=== PATIENT | female | born 1980 | race Caucasian/White ===

== ENCOUNTER 2017-09-23 23:38 | Emergency (ER) | payer OTHER ==
[2017-09-24 01:09] LABS: BEDSIDE GLUCOSE 74 MG/DL (70-105)
[2017-09-24] MEDS: NS 1,000 ML IV (01:10)
[2017-09-24 01:22] LABS: BASO # 0.1 10^3/uL (0.0-0.2); BASO % 1.1 % (0.0-1.0); EOS # 2.1 10^3/uL (0.0-0.50); EOS % 15.7 % (0.0-3.0); HEMATOCRIT 42.3 % (36.0-47.0); HEMOGLOBIN 14.4 g/dl (12.0-16.0); IMMATURE GRANULOCYTE # 0.1 10^3/uL (0-0); IMMATURE GRANULOCYTE % 0.6 % (0-0); LYMPH # 1.8 10^3/uL (1.5-4.5); LYMPH % 13.5 % (24.0-44.0); MEAN CORPUSCULAR HEMOGLOBIN 29.9 pg (27.0-33.0); MEAN CORPUSCULAR VOLUME 87.9 fl (80.0-96.0); MONO # 0.9 10^3/uL (0.0-0.8); MONO % 6.7 % (0.0-5.0); NEUTROPHILS # 8.2 10^3/uL (1.8-7.7); NEUTROPHILS % 62.4 % (36.0-66.0); PLATELET COUNT, AUTOMATED 372 10^3/uL (150-450); RED BLOOD COUNT 4.81 10^6/uL (4.00-5.40); WHITE BLOOD COUNT 13.1 10^3/uL (4.0-10.0)
[2017-09-24 01:36] LABS: ANION GAP 3 MEQ/L (8-16); BLOOD UREA NITROGEN 6 MG/DL (7-18); CALCIUM LEVEL 8.9 MG/DL (8.5-10.1); CARBON DIOXIDE LEVEL 31 MEQ/L (21-32); CHLORIDE LEVEL 103 MEQ/L (98-107); CPK CREATINE PHOSPHOKINASE 85 U/L (26-192); CREATININE FOR GFR 0.84 MG/DL (0.55-1.02); ETHYL ALCOHOL (ETHANOL) < 0.003 % (0.000-0.010); GLOMERULAR FILTRATION RATE > 60.0 (>60); GLUCOSE, FASTING 100 MG/DL (70-105); POTASSIUM SERUM 4.1 MEQ/L (3.5-5.1); SODIUM LEVEL 137 MEQ/L (136-145); TROPONIN I < 0.02 NG/ML (< 0.10)
[2017-09-24 01:42] LABS: MB/CK RELATIVE INDEX 1.17 (< OR =4)
[2017-09-24 02:38] LABS: KETONE, URINE AUTO RFX NEGATIVE (NEGATIVE); LEUKOCYTE ESTERASE UR AUTO RFX NEGATIVE (NEGATIVE); NITRITE, URINE AUTO RFX NEGATIVE (NEGATIVE); RBC, URINE AUTO RFX 0 /HPF (0-3); SPECIFIC GRAVITY UR AUTO RFX 1.002 (1.002-1.035); SQUAM EPITHELIAL CELL UR AURFX 1 /HPF (0-6); WBC, URINE AUTO RFX 0 /HPF (0-3)
[2017-09-24 02:56] LABS: AMPHETAMINES LEVEL URINE NEGATIVE (NEGATIVE); BARBITURATES URINE NEGATIVE (NEGATIVE); BENZODIAZEPINES URINE NEGATIVE (NEGATIVE); CANNABINOIDS URINE POSITIVE (NEGATIVE); COCAINE METABOLITE URINE NEGATIVE (NEGATIVE); METHADONE URINE NEGATIVE (NEGATIVE); OPIATES URINE NEGATIVE (NEGATIVE); PHENCYCLIDINE URINE NEGATIVE (NEGATIVE)
== END 2017-09-24 04:21 | disposition home or self-care (01) ==
LOC: M ED 23:38
DX: R55 Syncope and collapse (principal)
CPT/HCPCS: 70450

== ENCOUNTER → 2018-03-11 | Outpatient (REF) | payer OTHER ==
[2018-03-14 14:59] LABS: HPV HYBRID CAPTURE II Negative (Negative)
== END ==
LOC: M LAB REF 13:31
DX: Z12.4 Encounter for screening for malignant neoplasm of cervix (principal)

== ENCOUNTER 2019-04-09 16:08 | Emergency (ER) | payer OTHER ==
[~2019-04-09] VITALS: Ht 167.6 cm; Wt 68.2 kg
[2019-04-09] MEDS ORDERED: CETI10CA13 PO (16:21)
[2019-04-09] MEDS ORDERED: SILVER SULFADIAZINE 1% CR 50 GM JAR TOP STA (17:47)
[2019-04-09] MEDS ORDERED: SILV1CRE60 TOP (17:50)
[2019-04-09] MEDS ORDERED: HYDR25OIN TOP (17:50)
[2019-04-09] MEDS ORDERED: PRED20TA PO (17:50)
[2019-04-09] MEDS ORDERED: predniSONE 20 MG TAB PO ONE (18:00)
[2019-04-09] MEDS ORDERED: diphenhydrAMINE 25 MG CAP PO ONE (18:00)
[2019-04-09 18:14] VITALS: BP 130/86
== END 2019-04-09 18:13 | disposition home or self-care (01) ==
LOC: M ED 16:08
DX: R21 Rash and other nonspecific skin eruption (principal); Z77.098 Contact with and (suspected) exposure to other hazardous, chiefly nonmedicinal, chemicals

== ENCOUNTER 2019-04-15 19:08 | Emergency (ER) | payer OTHER ==
[~2019-04-15] VITALS: Ht 167.6 cm; Wt 68.2 kg
[2019-04-15 19:08] VITALS: BP 146/85
[~2019-04-15 19:08] MED LIST: CETI10CA13 PO; HYDR25OIN TOP; PRED20TA PO; SILV1CRE60 TOP
[2019-04-15] MEDS ORDERED: predniSONE 20 MG TAB PO ONE (20:45)
[2019-04-15] MEDS ORDERED: PRED20TA PO (20:53)
== END 2019-04-15 21:27 | disposition home or self-care (01) ==
LOC: M ED 19:08
DX: L25.9 Unspecified contact dermatitis, unspecified cause (principal)

== ENCOUNTER 2019-05-07 10:52 | Emergency (ER) | payer OTHER ==
[~2019-05-07] VITALS: Ht 167.6 cm; Wt 68.2 kg
[2019-05-07 10:52] VITALS: BP 131/76
[2019-05-07] MEDS ORDERED: TRIA1OI80 TOP (11:27)
== END 2019-05-07 11:37 | disposition home or self-care (01) ==
LOC: M ED 10:52
DX: L23.89 Allergic contact dermatitis due to other agents (principal)

== ENCOUNTER 2019-05-14 11:35 | Emergency (ER) | payer OTHER ==
[~2019-05-14] VITALS: Ht 167.6 cm; Wt 73.1 kg
[~2019-05-14 11:35] MED LIST changes: +TRIA1OI80 TOP
[2019-05-14 11:36] VITALS: BP 143/87
[2019-05-14] MEDS ORDERED: CIME300T91 PO (11:59)
[2019-05-14] MEDS ORDERED: PRED10TA2 PO (11:59)
[2019-05-14] MEDS ORDERED: FAMOTIDINE 20 MG TAB PO ONE (12:00)
[2019-05-14] MEDS ORDERED: predniSONE 10 MG TAB PO ONE (12:00)
[2019-05-14] MEDS ORDERED: NEOSPORIN TOP OINT 15GM TOP ONE (12:30)
[2019-05-15] MEDS ORDERED: NEOSPORIN TOP OINT 15GM TOP ONE (09:00)
== END 2019-05-14 12:34 | disposition home or self-care (01) ==
LOC: M ED 11:35
DX: L50.9 Urticaria, unspecified (principal); T78.49XA Other allergy, initial encounter; X58.XXXA Exposure to other specified factors, initial encounter; Y92.89 Other specified places as the place of occurrence of the external cause